=== PATIENT | female | born 1990 | race Caucasian/White ===

== ENCOUNTER 2019-02-17 20:37 | Emergency (ER) | payer MEDICAID, OTHER ==
[2019-02-17] MEDS ORDERED: MAGNESIUM CITRATE 300 ML BOTTLE PO ONE (21:03)
[2019-02-17] MEDS ORDERED: ACETAMINOPHEN 325 MG TAB PO ONE (21:10)
[2019-02-17] MEDS ORDERED: IBUPROFEN 600 MG TAB PO ONE (21:10)
--- NOTE | 2019-02-17 22:04 | EDPHY ---
H & P Time Seen by Provider: 02/17/19 20:48 HPI/ROS: Chief complaint: Right ankle injury History of present illness: This is a 29-year-old female who presents to the emergency department for a right ankle injury. She states she struck the outside of her ankle against a doorjamb. Since then she has had pain and swelling. She is able to ambulate. No report of open wounds. No abnormal coolness or paresthesias. No other injuries reported. Smoking Status: Never smoked Physical Exam: General: Alert, nontoxic. Skin: Contusion to the lateral aspect of the ankle. No open wounds. Musculoskeletal: The contusion is tender to palpation without crepitus. The ankle including the Achilles is otherwise intact. The foot, lower leg are unremarkable. Vascular: DP and PT pulses 2+. Neurologic: Sensation intact in the right leg and foot. Constitutional: Initial Vital Signs Temperature (C) 36.9 C 02/17/19 20:40 Heart Rate 84 02/17/19 20:40 Respiratory Rate 16 02/17/19 20:40 Blood Pressure 127/74 H 02/17/19 20:40 O2 Sat (%) 94 02/17/19 20:40 O2 Delivery Mode Room Air Allergies/Adverse Reactions: Penicillins Allergy (Verified 02/17/19 20:42) Home Medications: Medication Instructions Recorded NK [No Known Home Meds] 02/17/19 MDM/Departure - MDM Imaging Results: Imaging Impressions Foot X-Ray 02/17/19 21:09 Impression: No acute osseous abnormality. Imaging: I viewed and interpreted images myself Procedures: Procedure: Splint placement. A Ravinder wrap and Velcro stirrup splint was applied. After application of the splint I returned and re-examined the patient. The splint was adequately immobilizing the joint and distal to the splint the patient's circulation and sensation was intact. Medications Given: Discontinued Medications Acetaminophen (Tylenol) 650 mg PO EDNOW ONE Stop: 02/17/19 21:11 Last Admin: 02/17/19 21:17 Dose: 650 mg Ibuprofen (Motrin) 600 mg PO EDNOW ONE Stop: 02/17/19 21:11 Last Admin: 02/17/19 21:17 Dose: 600 mg ED Course/Re-evaluation: Patient seen under the supervision of my primary supervising physician Dr. Portia De León. Patient presents to the emergency department for a right ankle injury. X-rays negative. She is neurovascularly intact. Contusion versus sprain or strain. Symptomatic care is discussed. She is asked to follow up with her primary care doctor for recheck. Return precautions are given. Patient voiced understanding and agreement with plan. Differential Diagnosis: Included but not limited to contusion, sprain or strain, bony fracture - Depart Disposition: Home, Routine, Self-Care Clinical Impression: Ankle sprain Qualifiers: Encounter type: initial encounter Involved ligament of ankle: unspecified ligament Laterality: right Qualified Code(s): S93.401A - Sprain of unspecified ligament of right ankle, initial encounter Condition: Good Instructions: Ankle Sprain (ED) Additional Instructions: Follow-up with a primary care doctor or orthopedic doctor for continued evaluation and care Rest the injury as much as possible Ice the injury, 20 min on, 3 times daily for the next 3 days Use ibuprofen 600 mg 3 times a day for the next 2-3 days for pain and swelling If symptoms worsen or new symptoms develop return to the emergency room for recheck Stand Alone Forms: Work Excuse Referrals: NONE *PRIMARY CARE P,. [Primary Care Provider] - As per Instructions [facility],. [Clinic] - As per Instructions Dandy Freitas MD [Medical Doctor] - As per Instructions
[2019-02-17 22:29] VITALS: BP 128/66
== END 2019-02-17 22:27 | disposition home or self-care (01) ==
DX: S93.401A Sprain of unspecified ligament of right ankle, initial encounter (principal); W22.8XXA Striking against or struck by other objects, initial encounter
CPT/HCPCS: L4350